=== PATIENT | male | born 1950 | race Caucasian/White ===

== ENCOUNTER 2016-09-10 18:36 | Emergency (ER) | payer MEDICARE, OTHER ==
--- NOTE | 2016-09-11 05:48 | ER ---
ADMIT: 09/10/2016 RM/LOC: ER [facility] MR#: [id number] [facility] [id number] [address] [place] [address] Emergency Room Report SEX: M AGE: 65 : 1950 DATE: 09/10/2016 The patient is a 65-year-old male, complaining of cough, weakness, fatigue after working outdoors today. Exam remarkable for nontoxic, afebrile male with minimal cough, but otherwise negative exam. Chest x-ray negative. CT chest without contrast shows likely right lower lobe infiltrate. Normal CBC, CRP, lactic elevated at 3.5. D-dimer normal and troponin negative. The patient covered with Levaquin 500 mg p.o. daily x7 days, first dose in department, a liter of fluids and Toradol with marked improvement of symptoms. Follow up with Dr. Orozco next week. Juan Dang MD/ cristi JOB #: [id number] CC: Benson Dumont MD, Attending Physician Fito Orozco MD, Family Physician Fito Orozco MD
== END 2016-09-10 21:50 | disposition home or self-care (01) ==
LOC: ER 18:36
DX: J18.9 Pneumonia, unspecified organism (principal); F17.210 Nicotine dependence, cigarettes, uncomplicated